=== PATIENT | male | born 1980 | race American Indian/Alaskan Native ===

== ENCOUNTER 2021-12-19 19:28 | Emergency (ER) | payer SELFPAY ==
--- NOTE | 2021-12-19 21:26 | XRay Report ---
LEFT HIP 3 VIEW(S) INDICATION / CLINICAL INFORMATION: hip pain heard a pop COMPARISON: None available. FINDINGS: BONES / JOINT(S): No acute fracture or subluxation. No significant arthritis. SOFT TISSUES: No significant abnormality. ADDITIONAL FINDINGS: None. Signer Name: Tanner Lo DO Signed: 12/19/2021 9:21 PM Workstation Name: [id number]
[2021-12-19] MEDS ORDERED: HYDROmorphone 1 MG/1 ML INJ IV ONE (21:33)
[2021-12-19] MEDS ORDERED: SODIUM CHLORIDE 0.9% 1000 ML 1,000 ML IV ONE (21:33)
--- NOTE | 2021-12-19 21:38 | Emergency Department Report ---
HPI - General Chief Complaint: Extremity Injury, Lower Time Seen by Provider: 12/19/21 21:17 - HPI HPI: 41-year-old male with no known past medical history presents complaining of severe left hip pain shooting down the back of his left thigh all the way to his ankle after experiencing some kind of injury while moving heavy appliances yesterday. 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 He says the pain is shooting down the back of his leg on the left side and goes all the way around his knee to the ankle. He tried to rest today and take Tylenol for the pain but while in the bathroom it happened again when he tried to bear weight on his left lower extremity. For this reason he decided to come in for evaluation. He also reports numbness of his left great toe with preserved sensation everywhere else. He also says he feels weak and unable to flex his left ankle. He denies any trauma to the head or LOC. He also denies trauma or injury to any other area of the body. There are no known aggravating or alleviating factors. Unable to bear weight. He also denies any associated fever/chills, headache, vision change, neck pain, back pain, chest pain, shortness of breath, abdominal pain, nausea/vomiting, or any other complaints. ED Past Medical Hx - Past Medical History Previous Medical History?: No - Medications Home Medications: Home Medications Medication Instructions Recorded Confirmed Last Taken Type Cyclobenzaprine [Flexeril] 10 mg PO TID PRN #20 12/19/21 Unknown Rx Ibuprofen [Motrin 600 MG tab] 600 mg PO Q8H PRN #20 tablet 12/19/21 Unknown Rx ED Review of Systems ROS: Stated complaint: LEFT SIDE HIP PAIN Other details as noted in HPI Comment: All other systems reviewed and negative Constitutional: denies: chills, fever Eyes: denies: eye pain, vision change ENT: denies: throat pain, congestion Respiratory: denies: cough, shortness of breath Cardiovascular: denies: chest pain, palpitations, syncope Gastrointestinal: denies: abdominal pain, nausea, vomiting Genitourinary: denies: dysuria, frequency Musculoskeletal: back pain, arthralgia Skin: denies: rash, lesions Neurological: weakness, numbness. denies: headache Hematological/Lymphatic: denies: easy bleeding Physical Exam - Physical Exam Physical Exam: GENERAL: Well developed and well nourished. No acute distress HEAD: Normocephalic. No obvious signs of trauma. ENT: Dry mucous membranes. EYES: Extraocular movements are intact. Pupils are equal round and reactive to light bilaterally NECK: Supple. Full ROM is intact. Trachea is midline. LUNGS: Nonlabored breathing. Equal chest rise bilaterally. Clear to auscultation bilaterally. CARDIOVASCULAR: Regular rate and rhythm. No murmurs or rubs. VASCULAR: Cap refill < 2 seconds. 2+ PT/DP pulses bilaterally. ABDOMEN: Abdomen is soft and nondistended. There is no significant tenderness, guarding or rebound. SKIN: Skin is warm and dry NEURO: Patient is awake, alert, and oriented. 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 There is decreased sensation to light touch over the ventral and dorsal aspects of the left great toe and adjoining portion of the foot but otherwise sensation is intact throughout. Patient has difficulty with range of motion of the left ankle although it is unclear whether it is due to pain or motor dysfunction. Otherwise normal motor and sensory exam throughout. Normal speech. MUSCULOSKELETAL: No obvious deformities. There is tenderness of the left hip and anterior femur. No tenderness of the left knee, tib-fib, ankle, or foot. Normal ROM throughout. BACK/SPINE: No step-offs of the C/T/L spine. There is mild midline tenderness to palpation of the lumbar spine as well as left paraspinous muscle tenderness. ED Medical Decision Making - Radiology Data Radiology results: report reviewed - Medical Decision Making 41-year-old male presenting with left hip pain which is shooting down the back of his thigh all the way to the ankle. This occurred while moving heavy appliances at his job. He is afebrile and with normal vital signs. He does have tenderness palpation over the left hip and despite having pain throughout the left lower extremity all the way to the ankle there is no tenderness of the distal left femur, knee, leg, or foot. He does have decreased sensation to light touch over the great toe as well as difficulty ranging at the left ankle. He has mild tenderness to palpation over the mid spine in the lumbar region but also has a joint left paraspinous muscle tenderness. No abdominal tenderness. I suspect that the patient's symptoms are related to sciatica. Nonetheless we will perform full work-up with plain film x-rays of the left hip, femur, and tib-fib. We will also obtain CT of the L-spine to assess for evidence of fracture or dislocation given that he has neurologic deficits on exam. We will give 1 L of IV fluids, Dilaudid, Zofran, Toradol, and reassess. Critical care attestation.: If time is entered above; I have spent that time in minutes in the direct care of this critically ill patient, excluding procedure time. ED Disposition Clinical Impression: Sciatica, Sensory deficit, left, Left hip pain, Lumbar strain Disposition: HOME / SELF CARE / HOMELESS Is pt being admited?: No Condition: Stable Instructions: Hip Pain, Radicular Pain, Sciatica, Lumbosacral Strain, Sciatica Rehab-SportsMed Additional Instructions: You should follow-up with both an orthopedic surgeon and the neurosurgeon listed given that you have motor and sensory deficits. Keep in mind that Flexeril is a muscle relaxant that may cause drowsiness. Return to the emergency department should you develop significantly worsening symptoms or new health concerns. Prescriptions: Cyclobenzaprine [Flexeril] 10 mg PO TID PRN #20 PRN Reason: Muscle Spasm Ibuprofen [Motrin 600 MG tab] 600 mg PO Q8H PRN #20 tablet PRN Reason: Pain Referrals: CASTRO GARCIA II, MD [Staff Physician] - 3-5 Days MIGNON CIFUENTES MD [Staff Physician] - 3-5 Days
[2021-12-19] MEDS ORDERED: ONDANSETRON 4 MG/2 ML INJ IV ONE (22:08)
[2021-12-19] MEDS ORDERED: oxyCODONE /ACETAMINOPHEN 5-325MG TAB PO ONE (22:08)
[2021-12-19] MEDS ORDERED: KETOROLAC 30 MG/1 ML INJ IV ONE (22:08)
--- NOTE | 2021-12-19 22:27 | XRay Report ---
LEFT FEMUR 2 VIEW(S) INDICATION / CLINICAL INFORMATION: pain + tend COMPARISON: None available. FINDINGS: BONES / JOINT(S): No acute fracture or subluxation. No significant arthritis. SOFT TISSUES: No significant abnormality. ADDITIONAL FINDINGS: None. LEFT TIBIA-FIBULA 2 VIEW(S) INDICATION / CLINICAL INFORMATION: pain + tend COMPARISON: None available. FINDINGS: BONES / JOINT(S): No acute fracture or subluxation. No significant arthritis. SOFT TISSUES: No significant abnormality. ADDITIONAL FINDINGS: None. Signer Name: Tanner Lo DO Signed: 12/19/2021 10:23 PM Workstation Name: [id number]
--- NOTE | 2021-12-19 22:32 | Cat Scan Report ---
CT LUMBAR SPINE WITHOUT CONTRAST INDICATION / CLINICAL INFORMATION: LEFT hip pain, LEFT great toe numbness, spinal tenderness. TECHNIQUE: Axial CT images were obtained through the lumbar spine. Sagittal and coronal reformatted i mages were produced. All CT scans at this location are performed using CT dose reduction for ALARA by means of automated exposure control. COMPARISON: None available. FINDINGS: VERTEBRAE: No significant abnormality. ALIGNMENT: No significant abnormality. DISC SPACES: There is disc space narrowing and endplate osteophytosis at L5-S1. FACET JOINTS: No significant abnormality. SPINAL CANAL: No significant abnormality. SACRUM:No significant abnormality of the visualized sacrum. PARASPINAL SOFT TISSUES: No significant abnormality. ADDITIONAL FINDINGS: None. IMPRESSION: 1. No acute fracture or static fixation of the lumbar spine. There is moderate degenerative disc dise ase at L5-S1. Signer Name: Tanner Lo DO Signed: 12/19/2021 10:28 PM Workstation Name: [id number]
[2021-12-20 00:53] VITALS: BP 124/72
== END 2021-12-20 00:52 | disposition home or self-care (01) ==
LOC: ED 19:28
DX: S39.012A Strain of muscle, fascia and tendon of lower back, initial encounter (principal); M54.30 Sciatica, unspecified side; R44.8 Other symptoms and signs involving general sensations and perceptions; M25.552 Pain in left hip; X58.XXXA Exposure to other specified factors, initial encounter; Y93.89 Activity, other specified; Y92.89 Other specified places as the place of occurrence of the external cause; Y99.8 Other external cause status
CPT/HCPCS: 72131; 73502; 73552; 73590; 96361; 96374; 96375; 99284; J1170; J1885; J2405; J7030; Q0162